=== PATIENT | female | born 1955 | race Caucasian/White ===

== ENCOUNTER → 2018-11-03 | Outpatient (CLI) | payer OTHER | END | disposition home or self-care (01) | LOC: OIH 12:24 | PROVIDERS: ATTEND Internal Medicine Cardiovascular Disease | DX: Z13.6 Encounter for screening for cardiovascular disorders (principal) | CPT/HCPCS: 75571 ==

== ENCOUNTER → 2019-04-20 | Outpatient (CLI) | payer SELFPAY | END | disposition home or self-care (01) | LOC: RAH 07:37 | PROVIDERS: ATTEND Internal Medicine | DX: R31.9 Hematuria, unspecified (principal); M47.815 Spondylosis without myelopathy or radiculopathy, thoracolumbar region; N20.0 Calculus of kidney | CPT/HCPCS: 74018 ==

== ENCOUNTER → 2019-05-01 | Outpatient (CLI) | payer SELFPAY ==
[~2019-05-01] MED LIST: IOHEXOL-350 50ML VIAL IV ONE
== END | disposition home or self-care (01) ==
LOC: RAH 14:25
PROVIDERS: ATTEND Internal Medicine
DX: R91.8 Other nonspecific abnormal finding of lung field (principal); M47.815 Spondylosis without myelopathy or radiculopathy, thoracolumbar region
CPT/HCPCS: 71270; Q9967

== ENCOUNTER 2024-05-22 18:18 | Emergency (ER) | payer MEDICARE ==
[~2024-05-22] VITALS: Ht 152.4 cm; Wt 65.3 kg
--- NOTE | 2024-05-22 18:49 | ERN ---
ED Note History of Present Illness Stated Complaint: COUGH, CONGESTION, FEVER Chief Complaint: Cough Time Seen by MD: 18:25 Dictation: PATIENT IS A 69-YEAR-OLD FEMALE COMING IN TODAY WITH FEVER CHILLS PRODUCTIVE COUGH WITH GREEN PHLEGM FOR SEVERAL DAYS. SHE STATES SHE WAS TREATED FOR PNEUMONIA IN NO EARLY APRIL. ALSO WENT TO THE URGENT CARE THIS LAST WEDNESDAY AND WAS DIAGNOSED WITH BILATERAL LOWER LOBE PNEUMONIA GIVEN A Z-GARCIA. SHE STATES SHE DOES NOT FEEL ANY BETTER AND IS FEELING MORE SHORT OF BREATH WITH FEVERS HIGH T-MAX 102. HISTORY OF PULMONARY FIBROSIS Allergies: Coded Allergies: prochlorperazine (Unverified Allergy, Unknown, 05/22/24) thioridazine (Unverified Allergy, Unknown, 05/22/24) Past Medical History Past Medical History: Arthritis, High Cholesterol, Hypertension Additional Past Medical Hx: PULMONARY FIBROSIS, PULMONARY NODULES Surgical History: None History: Not Applicable RN Note Reviewed/Agreed w/PFSH: Yes Review of System Dictation CONSTITUTIONAL: NEGATIVE EXCEPT FOR HPI FEVER CHILLS HEAD/FACE: NEGATIVE EXCEPT FOR HPI EENT: NEGATIVE EXCEPT FOR HPI RESPIRATORY: NEGATIVE EXCEPT FOR HPI SHORTNESS A BREATH WITH PRODUCTIVE COUGH GASTROINTESTINAL/ABDOMINAL: NEGATIVE EXCEPT FOR HPI GENITOURINARY: NEGATIVE EXCEPT FOR HPI MUSCULOSKELETAL: NEGATIVE EXCEPT FOR HPI INTEGUMENTARY: NEGATIVE EXCEPT FOR HPI NEUROLOGICAL/PSYCH: NEGATIVE EXCEPT FOR HPI HEMATOLOGIC/LYMPHATIC: NEGATIVE EXCEPT FOR HPI ALL SYSTEMS NEGATIVE, EXCEPT NOTED ABOVE. 13 POINT REVIEW OF SYSTEMS ASSESSED AND ALL NEGATIVE EXCEPT FOR ABOVE. Initial Vital Sign VS Vital Signs Date Time Temp Pulse Resp B/P (MAP) Pulse Ox O2 Delivery O2 Flow Rate FiO2 05/22/24 18:19 99.9 96 20 140/78 96 Room Air 0 Physical Exam Dictation VITAL SIGNS REVIEWED GENERAL APPEARANCE: ALERT, ORIENTED X 3, NO ACUTE DISTRESS, WELL DEVELOPED, NOURISHED. HEAD AND FACE: NON-TRAUMATIC. EYES: PERRL, PINK CONJUNCTIVAS, EYELID NO TRAUMA, ANTERIOR CHAMBER WITH ARCUS SENILIS. EARS: PINNAS INTACT AND NO SIGNS OF TRAUMA OR ERYTHEMA EAR CANALS CLEAR AND NO DISCHARGE TM NO ERYTHEMA NOSE: NO DISCHARGE, NO BLEEDING. OROPHARYNX: MOUTH NORMAL, TONGUE PINK, PHARYNX CLEAR,NO ERYTHEMA, TONSILS NO EXUDATES, NO ABSCESSES NOTED, MUCOUS MEMBRANE MOIST NECK: SUPPLE, NON-TENDER, NO THYROMEGALY, NO MASSES, NO JVD, NO BRUITS BREAST:DEFERRED CHEST:NO TENDERNESS, NO CREPITUS, NO PARADOXICAL MOVEMENT, NO RETRACTIONS LUNGS:CLEAR, WELL-VENTILATED, SYMMETRIC, NO RALES, NO WHEEZING, NO RHONCHI, NO STRIDOR, NO TACHYPNEA, DIMINISHED IN BASES BILATERALLY HEART: REGULAR RATE, REGULAR RHYTHM, NO MURMUR, NO GALLOPS VASCULAR: NO PERIPHERAL EDEMA, ABDOMEN: SOFT, POSITIVE BOWEL SOUNDS, NONDISTENDED, NO GUARDING, NONTENDER, NO REBOUND, NO MASSES NO HEPATOMEGALY, NO SPLENOMEGALY, NO MCRAE'S SIGN, NO HERNIAS. RECTAL: DEFERRED GENITAL: DEFERRED NEUROLOGICAL: NORMAL SPEECH, MOTOR FUNCTION INTACT, SENSORY FUNCTION INTACT MUSCULOSKELETAL: NECK NONTENDER, FULL RANGE OF MOTION, BACK NONTENDER, FULL RANGE OF MOTION, EXTREMITIES: NONTENDER, FULL RANGE OF MOTION SKIN: COLOR PINK, DRY, NO TURGOR, NO RASH, NO LACERATIONS, NO ABRASIONS, NO CONTUSIONS. LYMPHATIC: DEFERRED Results (Laboratory/Radiology) Laboratory/Radiology Laboratory Tests Test 05/22/24 20:00 05/22/24 20:20 Urine Color LIGHT-YELLOW (YELLOW) Urine Appearance CLEAR (CLEAR) Urine pH 5.5 (5.0-8.0) Urine Specific [place] 1.019 (1.001-1.031) Urine Protein NEGATIVE mg/dL (NEGATIVE) Urine Glucose (UA) NEGATIVE mg/dL (NEGATIVE) Urine Ketones NEGATIVE mg/dL (NEGATIVE) Urine Occult Blood NEGATIVE (NEGATIVE) Urine Nitrate NEGATIVE (NEGATIVE) Urine Bilirubin NEGATIVE mg/dL (NEGATIVE) Urine Urobilinogen 0.2 mg/dL (0.2-1.0) Urine Leukocyte Esterase NEGATIVE Jayna/uL Influenza Type A Antigen Positive For Type A Influenza Type B Antigen Negative For Type B SARS-CoV-2 Antigen (Rapid) PRESUMPTIVE NEGATIVE White Blood Count 7.0 K/uL (4.8-10.8) Red Blood Count 4.24 MIL/uL (4.00-5.50) Hemoglobin 13.2 g/dL (12.0-16.0) Hematocrit 38.9 % (36-48) Mean Corpuscular Volume 91.7 fL (79-99) Mean Corpuscular Hemoglobin 31.1 pg (27.0-33.0) Mean Corpuscular Hemoglobin Concent 33.9 g/dL (32.0-36.0) Red Cell Distribution Width 13.2 % (11.0-15.5) Platelet Count 168 K/uL (130-400) Mean Platelet Volume 9.1 fL (7.5-10.5) Immature Granulocyte % (Auto) 0.3 % (0-1) Neutrophils (%) (Auto) 80.5 % (40.0-77.0) H Lymphocytes (%) (Auto) 10.6 % (21.0-51.0) L Monocytes (%) (Auto) 8.0 % (3.0-13.0) Eosinophils (%) (Auto) 0.3 % (0.0-8.0) Basophils (%) (Auto) 0.3 % (0.0-5.0) Neutrophils # (Auto) 5.7 K/uL (1.8-7.7) Lymphocytes # (Auto) 0.7 K/uL (1.0-4.8) L Monocytes # (Auto) 0.6 K/uL (0.1-1.0) Eosinophils # (Auto) 0.02 K/uL (0.00-0.70) Basophils # (Auto) 0.02 K/uL (0.00-0.20) Absolute Immature Granulocyte (auto 0.02 K/uL (0-1) Nucleated Red Blood Cells 0.0 % (0.0-0.19) Sodium Level 143 mmol/L (136-145) Potassium Level 3.4 mmol/L (3.5-5.1) L Chloride Level 105 mmol/L (101-111) Carbon Dioxide Level 29 mmol/L (21-32) Blood Urea Nitrogen 11 mg/dL (7-18) Creatinine 0.7 mg/dL (0.5-1.0) Glomerular Filtration Rate Calc 94 mL/min (>90) Random Glucose 91 mg/dL (70-105) Lactic Acid Level 1.0 mmol/L (0.8-2.5) Total Calcium 9.1 mg/dL (8.5-10.1) CHEST X-RAY DEMONSTRATE INCREASED INTERSTITIAL MARKINGS WITHOUT INFILTRATE NODULES NOTED PATIENT STATES SHE HAS A HISTORY OF PULMONARY NODULE Labs Reviewed?: Yes ED Course ED Course Orders Procedure Category Date Status Time Covid19 (Sars Antigen LAB 05/22/24 Complete Rapid) 18:45 Influenza Type A & B, LAB 05/22/24 Complete Rapid 18:45 Cbc With Differential LAB 05/22/24 Complete 18:45 Blood Cult DIETER 05/22/24 In Process 18:45 Urinalysis Profile LAB 05/22/24 Complete 18:45 0.9%Nacl 1000ml (Ns PHA 05/22/24 In Process 1000ml) 19:00 Lactic Acid LAB 05/22/24 Complete 18:45 Basic Metabolic Panel LAB 05/22/24 Complete 18:45 Acetaminophen 500mg PHA 05/22/24 Complete Tab (Tylenol 500mg T 19:00 Albuterol 0.083% PHA 05/22/24 Complete 2.5mg/3ml (Proventil 19:00 Chest 1vw RAD 05/22/24 Taken 20:22 Oseltamivir Phosphate PHA 05/22/24 Complete (Tamiflu) 21:00 Methylprednisolone PHA 05/22/24 Verified Succ 125mg (Solu-Medr 22:00 Ketorolac PHA 05/22/24 Verified Tromethamine 30mg/Ml 22:00 Current Medications Medications (Trade) Dose Ordered Sig/Dagmar Route PRN Reason Start Time Stop Time Status Last Admin Dose Admin Acetaminophen (TYLenol 500MG TAB) 1,000 mg ONCE ONCE PO 05/22/24 19:00 05/22/24 19:01 DC 05/22/24 21:48 Albuterol Sulfate (Proventil 0.083% 2.5mg/3ml) 5 mg ONCE ONCE IH 05/22/24 19:00 05/22/24 19:01 DC Oseltamivir Phosphate (Tamiflu) 75 mg ONCE ONCE PO 05/22/24 21:00 05/22/24 21:01 DC 05/22/24 21:48 Sodium Chloride 1,959 ml @ 653 mls/hr ONCE ONCE IV 05/22/24 19:00 05/22/24 21:59 05/22/24 21:48 Vital Signs Date Time Temp Pulse Resp B/P (MAP) Pulse Ox O2 Delivery O2 Flow Rate FiO2 05/22/24 21:48 99.9 05/22/24 18:19 99.9 96 20 140/78 96 Room Air 0 2155, PATIENT IS SATURATING 96 97% ON ROOM AIR SHE HAS BEEN GIVEN ALBUTEROL WITH A L OF FLUIDS, SOLU-MEDROL BEGUN TAMIFLU AND TORADOL. Medical Decision Making MDM MDM: DIFFERENTIAL DIAGNOSIS: PNEUMONIA/BRONCHITIS/INFLUENZA/SARS COVID/SHORTNESS A BREATH/VIRAL URI WITH COUGH/ RATIONALE: TESTS CONSIDERED AND ORDERED SECONDARY TO SHARED DECISION MAKING INCLUDE: SWABS/RADIOLOGY PREVIOUS OUTSIDE RECORDS REVIEWED: OLD ER VISITS. REVIEWED RISK OF COMPLICATION AND/OR MORBIDITY OR MORTALITY OF PATIENT MANAGEMENT: MINIMAL MEDICATIONS-PER MEDICATION RECONCILIATION SEE NURSE'S NOTES NEED FOR HOSPITALIZATION: PATIENT DOES NOT MEET CRITERIA FOR HOSPITALIZATION. NO NEED FOR EMERGENCY MAJOR/MINOR SURGERY: NO THERE ARE NO SOCIAL CONCERNS WITH THIS PATIENT. PRESCRIPTION DRUG MANAGEMENT TAMIFLU/BUDESONIDE/MEDROL DOSEPAK PRESCRIPTIONS WILL INCLUDE SYMPTOMATIC CARE PATIENT'S PRIOR EXTERNAL MEDICAL RECORDS FROM OTHER ER VISITS WERE REVIEWED BY ME INDICATED. PRIOR TESTING AND RESULTS FROM PREVIOUS VISITS WERE REVIEWED. PRIOR TESTS WERE TAKEN INTO ACCOUNT WITH MEDICAL DECISION MAKING AND RESOURCE UTILIZATION, INDEPENDENT HISTORIAN/HISTORIANS WERE USED TO OBTAIN COMPLETE MEDICAL HISTORY. I INDEPENDENTLY INTERPRETED THE TEST THAT WERE PERFORMED, RESULTS WERE REVIEWED BY ME AND CONSIDERED FINDINGS ON RADIOLOGY IF ORDERED. MEDICAL MANAGEMENT AND EXAMINATION INTERPRETATION DISCUSSIONS WERE HAD BY ME WITH OTHER QUALIFIED HEALTHCARE PROFESSIONALS INDICATED FOR THE PATIENT'S CARE. DX & DISP Disposition: Discharge Departure Impression: Primary Impression: Influenza A Additional Impressions: Fever, Cough, History of pulmonary fibrosis Condition: Stable Scripts Benzonatate (Tessalon Perles) 100 Mg Cap 200 MG PO TID for cough, #60 CAP 0 Refills TWO CAPSULES BY MOUTH EVERY8 HOURS NEEDED FOR COUGH. Prov: ALEXIA WEST NP 05/22/24 Oseltamivir Phosphate (Tamiflu) 75 Mg Cap 75 MG PO BID for 5 Days, #10 CAP Prov: ALEXIA WEST NP 05/22/24 Methylprednisolone (Medrol) 4 Mg Tab.ds.pk 1 TAB PO AD for 6 Days, #21 TAB 0 Refills 6 on day 1 then reduce by one tablet daily until gone Prov: ALEXIA WEST NP 05/22/24 Budesonide (Budesonide) 1 Mg/2 Ml Ampul.neb 1 VIAL NEB BID for 7 Days, #28 ML 0 Refills Prov: ALEXIA WEST NP 05/22/24 Additional Instructions: FOLLOW-UP WITH PRIMARY CARE PROVIDER IN 1 TO 2 DAYS. TAKE MEDICATIONS DIRECTED HERE IN THE EMERGENCY ROOM. OKAY TO CONTINUE HOME MEDICATIONS UNLESS OTHERWISE DISCUSSED DURING YOUR VISIT IN THE EMERGENCY ROOM TODAY. RETURN TO YOUR NEAREST EMERGENCY ROOM IF SYMPTOMS WORSEN OR IF THERE IS NO IMPROVEMENT. CALL 911 IF YOU NEED IMMEDIATE ASSISTANCE. TAKE TYLENOL OR MOTRIN OVER-THE- COUNTER NEEDED AND IF NO CONTRAINDICATIONS ARE PRESENT. INCREASE ORAL HYDRATION. A WOUND CULTURE OR URINE CULTURE WAS ORDERED HERE IN THE EMERGENCY ROOM DEPARTMENT PLEASE FOLLOW-UP WITH PRIMARY CARE PROVIDER AND ADVISE THEM TO GET REPEAT PORTS FROM OUR FACILITY. IF YOU HAD ANY EDEL WRAP/SPLINTS THAT WERE APPLIED HERE, PLEASE DO NOT REMOVE THEM UNTIL YOU SEE YOUR PRIMARY CARE OR SPECIALTY. CONTINUE AZITHROMYCIN FROM YOUR DOCTOR UNTIL GONE. USE YOUR ALBUTEROL NEBULIZER EVERY4 HOURS WHILE AWAKE FOR THE NEXT THREE DAYS. USE BUDESONIDE IN YOUR NEBULIZER EVERY 12 HOURS FOR THE NEXT SEVEN DAYS. TAKE MEDROL DOSEPAK DIRECTED UNTIL GONE. NO WORK UNTIL CLEARED BACK BY YOUR PRIMARY CARE DOCTOR. INCREASE YOUR WATER INTAKE. Referrals: BRET FIKN MD (PCP) Time of Disposition: 21:56 I have reviewed the case, and I agree with, Diagnosis and Plan ALEXIA WEST NP May 22, 2024 18:49
[2024-05-22 20:20] LABS: APPEARANCE,URINE CLEAR (CLEAR); BILIRUBIN,URINE NEGATIVE (NEGATIVE); COLOR,URINE LIGHT-YELLOW (YELLOW); GLUCOSE, URINE (UA) NEGATIVE (NEGATIVE); KETONES,URINE NEGATIVE (NEGATIVE); LEUKOCYTE ESTERASE ,URINE NEGATIVE Leu/uL (NEGATIVE); NITRATE,URINE NEGATIVE (NEGATIVE); OCCULT BLOOD,URINE NEGATIVE (NEGATIVE); PH,URINE 5.5 (5.0-8.0); PROTEIN,URINE NEGATIVE (NEGATIVE); UROBILINOGEN,URINE 0.2 mg/dL (0.2-1.0)
[2024-05-22 20:22] LABS: ADD UA MICROSCOPIC NO
[2024-05-22 20:26] LABS: BASOPHILS # (AUTO) 0.02 K/uL (0.00-0.20); BASOPHILS % (AUTO) 0.3 % (0.0-5.0); EOSINOPHILS # (AUTO) 0.02 K/uL (0.00-0.70); EOSINOPHILS % (AUTO) 0.3 % (0.0-8.0); HEMATOCRIT 38.9 % (36-48); IMMATURE GRANULOCYTE ABSOLUTE 0.02 K/uL (0-1); LYMPHOCYTES # (AUTO) 0.7 K/uL (1.0-4.8); LYMPHOCYTES % (AUTO) 10.6 % (21.0-51.0); MEAN CORPUSCULAR HEMOGLOBIN 31.1 pg (27.0-33.0); MEAN CORPUSCULAR HGB CONC 33.9 g/dL (32.0-36.0); MEAN CORPUSCULAR VOLUME 91.7 fL (79-99); MONOCYTES # (AUTO) 0.6 K/uL (0.1-1.0); NEUTROPHILS # (AUTO) 5.7 K/uL (1.8-7.7); NEUTROPHILS % (AUTO) 80.5 % (40.0-77.0); PLATELET COUNT (AUTO) 168 K/uL (130-400); RED BLOOD CELL COUNT(AUTO) 4.24 MIL/uL (4.00-5.50); RED CELL DISTRIBUTION WIDTH 13.2 % (11.0-15.5)
[2024-05-22 20:38] LABS: INFLUENZA TYPE B Negative For Type B (NEGATIVE)
[2024-05-22 20:39] LABS: COVID19 (SARS ANTIGEN RAPID) PRESUMPTIVE NEGATIVE (NEGATIVE)
[2024-05-22 20:49] LABS: CREATININE 0.7 mg/dL (0.5-1.0); POTASSIUM 3.4 mmol/L (3.5-5.1)
[2024-05-22 20:51] LABS: INFLUENZA TYPE A Positive For Type A (NEGATIVE)
[2024-05-22] MEDS: OSELTAMIVIR PHOSPHATE 75 MG CAP PO ONE (21:48)
[2024-05-22] MEDS: [UNRECOGNIZED DRUG - OTHER] IV ONE (21:48)
[2024-05-22] MEDS: acetaMINOPHEN 500 MG TABLET PO ONE (21:48)
[2024-05-22] MEDS ORDERED: BUDE1AMP2 NEB (22:02)
[2024-05-22] MEDS ORDERED: METH4TAB3 PO (22:02)
[2024-05-22] MEDS ORDERED: BENZ-39 PO (22:02)
[2024-05-22] MEDS ORDERED: OSEL75 PO (22:02)
--- NOTE | 2024-05-22 22:21 | HMCIMG ---
CHEST 1VW HISTORY: Productive cough COMPARISON: None FINDINGS: A frontal projection of the chest was obtained. Prominent interstitial markings are seen with possible superimposed infiltrates. The heart is borderline enlarged. Degenerative changes are seen. No evidence of aortic calcification is seen. IMPRESSION: 1. Prominent interstitial markings are seen with possible superimposed infiltrates.
[2024-05-22] MEDS: Solu-medROL 125MG VIAL IVP ONE (22:33)
[2024-05-22] MEDS: ketOROlac 30MG VIAL (30MG/ML) IVP ONE (22:33)
[2024-05-22 23:18] VITALS: PULSE 72; RESP 20
[2024-05-22] MEDS: ALBUTEROL 0.083% 2.5 MG/3 ML INH IH ONE (23:19)
[2024-05-23] MEDS: ALBUTEROL 0.083% 2.5 MG/3 ML INH IH ONE (00:03)
[2024-05-23 00:42] VITALS: BP 145/82; PULSE 80; RESP 20; TEMP 98.5; O2SAT 99
[2024-05-23 00:48] VITALS: TEMP 98.8
== END 2024-05-23 00:57 | disposition home or self-care (01) ==
LOC: EDH 18:18
DX: J10.1 Influenza due to other identified influenza virus with other respiratory manifestations (principal); R50.9 Fever, unspecified; R05.9 Cough, unspecified; E78.00 Pure hypercholesterolemia, unspecified; I10 Essential (primary) hypertension; M19.90 Unspecified osteoarthritis, unspecified site; Z87.01 Personal history of pneumonia (recurrent); Z20.822 Contact with and (suspected) exposure to COVID-19
CPT/HCPCS: 99284; 96374; 96361; 71045; 96375; 87426; 80048; 85025; 87040 ×2; 87804 ×2; 83605; 81003; 36415; 94640; J7030; J2919; J1885

== ENCOUNTER 2025-01-28 14:06 | Emergency (ER) | payer MEDICARE ==
[~2025-01-28] VITALS: Ht 152.4 cm; Wt 64.4 kg
[~2025-01-28 14:06] MED LIST changes: +BENZ-39 PO; +BUDE1AMP2 NEB; -IOHEXOL-350 50ML VIAL IV ONE; +METH4TAB3 PO; +OSEL75 PO
--- NOTE | 2025-01-28 15:09 | ERN ---
ED Note History of Present Illness Stated Complaint: CONGESTION Chief Complaint: Congestion Time Seen by MD: 14:12 Dictation: 69-YEAR-OLD FEMALE PRESENTS TO ER COMPLAINTS OF COUGH, CONGESTION, BACK PAIN. DENIES FEVER OR SHORTNESS OF BREATH Allergies: Coded Allergies: prochlorperazine (Unverified Allergy, Unknown, 05/22/24) thioridazine (Unverified Allergy, Unknown, 05/22/24) Home Meds Active Scripts Benzonatate (Tessalon Perles) 100 Mg Cap, 200 MG PO TID for cough, #60 CAP 0 Refills TWO CAPSULES BY MOUTH EVERY8 HOURS NEEDED FOR COUGH. Prov:ALEXIA WEST NP 05/22/24 Oseltamivir Phosphate (Tamiflu) 75 Mg Cap, 75 MG PO BID for 5 Days, #10 CAP Prov:ALEXIA WEST NP 05/22/24 Methylprednisolone (Medrol) 4 Mg Tab.ds.pk, 1 TAB PO AD for 6 Days, #21 TAB 0 Refills 6 on day 1 then reduce by one tablet daily until gone Prov:ALEXIA WEST NP 05/22/24 Budesonide (Budesonide) 1 Mg/2 Ml Ampul.neb, 1 VIAL NEB BID for 7 Days, #28 ML 0 Refills Prov:ALEXIA WEST NP 05/22/24 Past Medical History Past Medical History: Arthritis, High Cholesterol, Hypertension Additional Past Medical Hx: PULMONARY FIBROSIS, PULMONARY NODULES Surgical History: None History: Not Applicable Review of System Dictation CONSTITUTIONAL: NEGATIVE FOR FEVER,CHILLS, AND WEIGHT LOSS EYES: NEGATIVE FOR INJURY, PAIN,REDNESS, AND DISCHARGE ENT: NEGATIVE FOR INJURY,PAIN OR SWELLING. POSITIVE NASAL CONGESTION CARDIOVASCULAR: NEGATIVE FOR CHEST PAIN, PALPITATIONS, AND EDEMA RESPIRATORY: NEGATIVE FOR SHORTNESS OF BREATH, WHEEZING, AND PLEURITIC CHEST ELIEZER N. POSITIVE COUGH ABDOMEN/GI: NEGATIVE FOR ABDOMINAL PAIN, NAUSEA, VOMITING, DIARRHEA, AND CONSTIPATION BACK: NEGATIVE FOR INJURY AND PAIN : NEGATIVE FOR INJURY, BLEEDING AND DISCHARGE MS/EXTREMITY: NEGATIVE FOR INJURY AND DEFORMITY SKIN: NEGATIVE FOR RASH, AND DISCOLORATION NEURO: NEGATIVE FOR HEADACHE, WEAKNESS, NUMBNESS, TINGLING, AND SEIZURE PSYCH: NEGATIVE FOR SUICIDE IDEATION, HOMICIDAL IDEATION, AND HALLUCINATIONS ALLERGY/IMMUNOLOGY: NEGATIVE FOR HIVES, RASH, AND ALLERGIES ALL SYSTEMS NEGATIVE, EXCEPT NOTED ABOVE. Initial Vital Sign VS Vital Signs Date Time Temp Pulse Resp B/P (MAP) Pulse Ox O2 Delivery O2 Flow Rate FiO2 01/28/25 14:07 98.2 72 16 159/69 97 Room Air 01/28/25 14:13 0 21 Physical Exam Dictation GENERAL: AWAKE, ALERT, NAD HEAD/FACE: NORMOCEPHALIC, ATRAUMATIC EYES: PERRL, EOMI, VISION AT BASELINE ENT: ORAL CAVITY CLEAR, TMS CLEAR, NO SIGNS OF INFECTION. NASAL CONGESTION NOTED NECK: TRACHEA MIDLINE, SUPPLE, NO NUCHAL RIGIDITY CARDIOVASCULAR: RRR, NORMAL S1/S2, NO MRGS, NO JVD RESPIRATORY: CTAB, NO RESPIRATORY DISTRESS, NO RALES OR WHEEZES ABDOMEN: SOFT, NON-TENDER, NON-DISTENDED, NORMAL BOWEL SOUNDS, NO GUARDING OR REBOUND. SKIN: WARM, DRY, NORMAL TURGOR, NO RASH MS/EXTREMITY: PULSES EQUAL, NO CYANOSIS, NEUROVASCULAR INTACT, FROM NEURO: COAX4, GCS 15, STRENGTH 5/5, CN 2-12 INTACT, NORMAL CEREBELLAR EXAM, NORMAL GAIT, PSYCH: NORMAL BEHAVIOR, MOOD, AND AFFECT NORMAL Results (Laboratory/Radiology) Laboratory/Radiology Laboratory Tests Test 01/28/25 15:10 Urine Color LIGHT-YELLOW (YELLOW) Urine Appearance CLEAR (CLEAR) Urine pH 6.5 (5.0-8.0) Urine Specific [place] 1.025 (1.001-1.031) Urine Protein NEGATIVE mg/dL (NEGATIVE) Urine Glucose (UA) NEGATIVE mg/dL (NEGATIVE) Urine Ketones NEGATIVE mg/dL (NEGATIVE) Urine Occult Blood NEGATIVE (NEGATIVE) Urine Nitrate NEGATIVE (NEGATIVE) Urine Bilirubin NEGATIVE mg/dL (NEGATIVE) Urine Urobilinogen 0.2 mg/dL (0.2-1.0) Urine Leukocyte Esterase NEGATIVE Jayna/uL Urine RBC 2-5 /HPF (0-1) H Urine WBC 0-1 /HPF (0-1) Urine Squamous Epithelial Cells RARE /HPF (0-2) Urine Bacteria None /HPF (None Seen) Influenza Type A Antigen Negative For Type A Influenza Type B Antigen Negative For Type B SARS-CoV-2 Antigen (Rapid) PRESUMPTIVE NEGATIVE X-RAY Comment: EXAM: CR Chest, 2 View. CLINICAL HISTORY: COUGH, BACK PAIN COMPARISON: None provided. FINDINGS: LUNGS: The lungs show no infiltrate or other acute finding. PLEURAL SPACES: No evidence of pleural effusion or pneumothorax. MEDIASTINUM: Cardiac size and mediastinal contours within normal limits. BONES: No aggressive appearing osseous lesion seen. IMPRESSION: No acute cardiopulmonary pathology is evident. P ED Course ED Course Orders Procedure Category Date Status Time Chest 2vws RAD 01/28/25 Resulted 14:43 Influenza Type A & B, LAB 01/28/25 Complete Rapid 14:43 Covid19 (Sars Antigen LAB 01/28/25 Complete Rapid) 14:43 Urinalysis Profile LAB 01/28/25 Complete 14:43 Dexamethasone 4mg/Ml PHA 01/28/25 Complete 1ml Vial (Dexametha 16:00 Ceftriaxone 1g Vial PHA 01/28/25 Complete (Rocephine 1g Inj) 16:00 Current Medications Medications (Trade) Dose Ordered Sig/Dagmar Route PRN Reason Start Time Stop Time Status Last Admin Dose Admin Ceftriaxone Sodium (ROCEphine 1G INJ) 1 gm ONCE ONCE IM 01/28/25 16:00 01/28/25 16:02 DC Dexamethasone Sodium Phosphate (dexaMETHasone 4MG/ML 1ML VIAL) 6 mg ONCE ONCE IM 01/28/25 16:00 01/28/25 16:02 DC Vital Signs Date Time Temp Pulse Resp B/P (MAP) Pulse Ox O2 Delivery O2 Flow Rate FiO2 01/28/25 14:13 98.2 72 18 159/69 97 Room Air* 0 21 01/28/25 14:07 98.2 72 16 159/69 97 Room Air Medical Decision Making MDM MDM: DIFFERENTIAL DIAGNOSIS: PNEUMONIA, UPPER RESPIRATORY INFECTION, INFLUENZA, COVID RATIONALE: TESTS CONSIDERED AND ORDERED SECONDARY TO SHARED DECISION MAKING INCLUDE: LABS, ECG AND RADIOLOGY PREVIOUS OUTSIDE RECORDS REVIEWED: OLD ER VISITS. RISK OF COMPLICATION AND/OR MORBIDITY OR MORTALITY OF PATIENT MANAGEMENT: NONE MEDICATIONS-PER MEDICATION RECONCILIATION NEED FOR HOSPITALIZATION: PATIENT DOES NOT MEET CRITERIA FOR HOSPITALIZATION. NEED FOR EMERGENCY MAJOR/MINOR SURGERY: NO THERE ARE NO SOCIAL CONCERNS WITH THIS PATIENT. PRESCRIPTION DRUG MANAGEMENT PRESCRIPTIONS WILL INCLUDE SYMPTOMATIC CARE PATIENT'S PRIOR EXTERNAL MEDICAL RECORDS FROM OTHER ER VISITS WERE REVIEWED BY ME INDICATED. PRIOR TESTING AND RESULTS FROM PREVIOUS VISITS WERE REVIEWED. PRIOR TESTS WERE TAKEN INTO ACCOUNT WITH MEDICAL DECISION MAKING AND RESOURCE UTILIZATION, INDEPENDENT HISTORIAN/HISTORIANS WERE USED TO OBTAIN COMPLETE MEDICAL HISTORY. I INDEPENDENTLY INTERPRETED THE TEST THAT WERE PERFORMED, RESULTS WERE REVIEWED BY ME AND CONSIDERED FINDINGS ON RADIOLOGY IF ORDERED. PATIENT VSS, NAD, NONTOXIC, STABLE FOR DISCHARGE. PT GIVEN DISCHARGE INSTRUCTIONS IN [place] TERMS AND UNDERSTOOD, ALL QUESTIONS ANSWERED. PT WILL FOLLOW UP WITH PCP AND RETURN TO THE ER IF WORSE. DX & DISP Disposition: Discharge Departure Impression: Primary Impression: Upper respiratory infection Additional Impressions: Cough, Nasal congestion Condition: Stable Scripts Azithromycin (Azithromycin) 250 Mg Tablet 1 TAB PO AD for 5 Days, #6 TAB 0 Refills 2 the first day followed by 1 for days 2-5 Prov: ANABEL BRAUN NP 01/28/25 Referrals: BRET FINK MD (PCP) ANABEL BRAUN NP Jan 28, 2025 15:09
[2025-01-28 15:36] LABS: APPEARANCE,URINE CLEAR (CLEAR); GLUCOSE, URINE (UA) NEGATIVE (NEGATIVE); LEUKOCYTE ESTERASE ,URINE NEGATIVE Leu/uL (NEGATIVE); NITRATE,URINE NEGATIVE (NEGATIVE); OCCULT BLOOD,URINE NEGATIVE (NEGATIVE)
[2025-01-28 15:37] LABS: ADD UA MICROSCOPIC YES
[2025-01-28 15:38] LABS: SQUAMOUS EPITHELIAL CELL,UR RARE /HPF (0-2)
[2025-01-28 15:44] LABS: COVID19 (SARS ANTIGEN RAPID) PRESUMPTIVE NEGATIVE (NEGATIVE)
[2025-01-28 15:45] LABS: INFLUENZA TYPE A Negative For Type A (NEGATIVE); INFLUENZA TYPE B Negative For Type B (NEGATIVE)
--- NOTE | 2025-01-28 16:06 | HMCIMG ---
EXAM: CR Chest, 2 View. CLINICAL HISTORY: COUGH, BACK PAIN COMPARISON: None provided. FINDINGS: LUNGS: The lungs show no infiltrate or other acute finding. PLEURAL SPACES: No evidence of pleural effusion or pneumothorax. MEDIASTINUM: Cardiac size and mediastinal contours within normal limits. BONES: No aggressive appearing osseous lesion seen. IMPRESSION: No acute cardiopulmonary pathology is evident. /[place]
[2025-01-28] MEDS ORDERED: AZIT250T9 PO (16:25)
[2025-01-28 17:50] VITALS: BP 137/62; PULSE 70; RESP 18; TEMP 98.2; O2SAT 97
== END 2025-01-28 17:52 | disposition home or self-care (01) ==
LOC: EDH 14:06
DX: J06.9 Acute upper respiratory infection, unspecified (principal); I10 Essential (primary) hypertension; E78.00 Pure hypercholesterolemia, unspecified; M19.90 Unspecified osteoarthritis, unspecified site; Z88.8 Allergy status to other drugs, medicaments and biological substances; Z20.822 Contact with and (suspected) exposure to COVID-19
CPT/HCPCS: 99284; 71046; 87426; 87804 ×2; 81001; 96372 ×2; J1100; J0696